=== PATIENT | male | born 1960 | race Caucasian/White ===

== ENCOUNTER 2016-12-27 21:07 | Emergency (ER) | payer OTHER ==
--- NOTE | 2016-12-27 21:13 | PDOC ---
History of Present Illness - General History Source: Patient Exam Limitations: No Limitations - History of Present Illness Initial Comments: 12/27/16 21:26 The patient is a 56year old male, with a significant past medical history of hypertension, CHF, hyperlipidemia, and hypothyroidism, who presents to the emergency department with complaints of a piece of his right hearing aid stuck in his ear canal. He reports that when he took his right hearing aid out a piece of it was missing and he believes it may still be stuck within his right ear. He denies any bodily pain or injury. Allergies: Iodinated contrast material Social history: Former smoker (quit in 2006) PCP: Dr. Fanny Barr <Angie Veliz - Last Filed: 12/27/16 21:26> <Santos Sweeney - Last Filed: 12/28/16 06:40> - General Chief Complaint: Foreign Body (FB) Stated Complaint: HEARING AID PART IN RIGHT EAR Time Seen by Provider: 12/27/16 21:12 Past History <Angie Veliz - Last Filed: 12/27/16 21:26> - Past Medical History Anemia: No Asthma: No (STATES HE WAS PUT ON SINGULAIR FOR A "COLD") Cancer: No Cardiac Disorders: Yes (HAD [place] 1993-TREATED MEDICALLY,NOT SURE WHEN HAD NUCLEAR STRESS LAST) CVA: No COPD: No CHF: Yes Dementia: No Diabetes: Yes (NIDDM) GI Disorders: No Disorders: No HTN: Yes Hypercholesterolemia: Yes Liver Disease: No Seizures: No Thyroid Disease: Yes (HYPOTHYROIDISM) - Surgical History Abdominal Surgery: No Appendectomy: No Cardiac Surgery: No Cholecystectomy: No Lung Surgery: No Neurologic Surgery: No Orthopedic Surgery: Yes (RIGHT AND LEFT KNEE REPLACEMENTS 1999 [id number], RIGHT ARM SURGERY 30 YRS AGO) - Psycho/Social/Smoking Cessation Hx Anxiety: No Suicidal Ideation: No Smoking Status: No Smoking History: Never smoked Years of Tobacco Use: 23 Have you smoked in the past 12 months: No Number of Cigarettes Smoked Daily: 0 If you are a former smoker, when did you quit?: 2006 Hx Alcohol Use: Yes (SOCIALLY) Drug/Substance Use Hx: No Substance Use Type: Alcohol Hx Substance Use Treatment: No <Santos Sweeney - Last Filed: 12/28/16 06:40> - Past Medical History Allergies/Adverse Reactions: Allergies Allergy/AdvReac Type Severity Reaction Status Date / Time Iodinated Contrast Media - Allergy Mild Swelling, Verified 01/27/16 01:06 Oral and Itching, [IV Dye, Iodine Containing Rash Contrast ] Home Medications: Ambulatory Orders Carvedilol 12.5 mg PO DAILY 06/08/12 Furosemide [Lasix -] 40 mg PO DAILY 06/08/12 Levothyroxine [Synthroid -] 200 mcg PO SUSA 06/08/12 Lisinopril [Prinivil] 10 mg PO DAILY 06/08/12 Aspirin [ASA -] 81 mg PO DAILY 06/21/12 Simvastatin [Zocor -] 20 mg PO HS 11/08/13 Levothyroxine Sodium [Levo-T] 175 mcg PO MOTUWETHFR 04/04/16 Oxycodone HCl/Acetaminophen [Percocet 5-325 mg Tablet] 1 - 2 tab PO Q6H Tizanidine HCl [Zanaflex (Nf) -] 2 mg PO TID PRN #15 tablet 04/18/16 Darifenacin Hydrobromide [Darifenacin ER] 7.5 mg PO DAILY 12/27/16 Montelukast Na [Singulair -] 10 mg PO HS 12/27/16 Omeprazole 20 mg PO DAILY 12/27/16 Review of Systems - Review of Systems Able to Perform ROS?: Yes Comments:: 12/27/16 21:26 GENERAL/CONSTITUTIONAL: No fever or chills. No weakness. HEAD, EYES, EARS, NOSE AND THROAT: +Believes foreign body in right ear No change in vision. No ear pain or discharge. No sore throat. <Angie Veliz - Last Filed: 12/27/16 21:26> *Physical Exam - Vital Signs Last Vital Signs Temp Pulse Resp BP Pulse Ox 98.2 F 82 18 154/78 98 12/27/16 21:08 12/27/16 21:08 12/27/16 21:08 12/27/16 21:08 12/27/16 21:08 - Physical Exam Comments: 12/27/16 21:27 GENERAL: Awake, alert, and fully oriented, in no acute distress HEAD: No signs of trauma ENT: Auricles normal inspection, hearing grossly normal, nares patent, oropharynx clear without exudates. Moist mucosa SKIN: Warm, Dry, normal turgor, no rashes or lesions noted. <Angie Veliz - Last Filed: 12/27/16 21:26> Medical Decision Making - Medical Decision Making 12/28/16 06:39 no fb identified <Santos Sweeney - Last Filed: 12/28/16 06:40> *DC/Admit/Observation/Transfer - Attestations Scribe Attestion: 12/27/16 21:27 Documentation prepared by JAS Salgado, acting as medical coder for Santos Sweeney MD. <Angie Veliz - Last Filed: 12/27/16 21:26> <Santos Sweeney - Last Filed: 12/28/16 06:40> Diagnosis at time of Disposition: Foreign body in ear - Discharge Dispostion Disposition: HOME Condition at time of disposition: Good - Referrals Referrals: Fanny Barr MD [Primary Care Provider] -
[2016-12-27 21:15] VITALS: BP 154/78; PULSE 82; TEMP 98.2; BMI 48.8
== END 2016-12-27 21:22 | disposition home or self-care (01) ==
LOC: SUPCPDRO 21:07 → FER 21:07
DX: T16.1XXA Foreign body in right ear, initial encounter (principal); X58.XXXA Exposure to other specified factors, initial encounter; Y93.89 Activity, other specified; Y92.9 Unspecified place or not applicable; E03.9 Hypothyroidism, unspecified; E11.9 Type 2 diabetes mellitus without complications; I50.9 Heart failure, unspecified; E78.5 Hyperlipidemia, unspecified; I25.2 Old myocardial infarction
CPT/HCPCS: 99281-25

== ENCOUNTER 2017-05-01 20:54 | Emergency (ER) | payer OTHER ==
[2017-05-01 20:59] VITALS: BP 153/86; PULSE 82; TEMP 98.3; BMI 53.8
--- NOTE | 2017-05-01 21:31 | PDOC ---
History of Present Illness - General History Source: Patient Exam Limitations: No Limitations - History of Present Illness Initial Comments: 05/01/17 21:55 The patient is a 56 year old male with a significant past medical history of GERD who presents to the ED with complaints of constipation for 2 days and abdominal pain for several hours. The patient reports multiple episodes of hard small sized stool. He reports one episode of blood in the stool yesterday secondary to straining in order to pass the bowel. Patient also reports a sudden onset of sharp generalized abdominal pain several hours ago. He also reports diaphoresis and feeling hot associated with present symptoms. Patient has an upper endoscopy scheduled in 2 days. Denies fever or chills. Denies chest pain or shortness of breath. Denies dysuria or change in urinary output. Denies any other symptoms. <Marianna Lomax - Last Filed: 05/01/17 21:55> <Kelsi Perez - Last Filed: 05/02/17 04:34> - General Chief Complaint: Pain, Acute Stated Complaint: ABD PAIN Time Seen by Provider: 05/01/17 21:30 Past History <Marianna Lomax - Last Filed: 05/01/17 21:55> - Past Medical History Anemia: No Asthma: No (STATES HE WAS PUT ON SINGULAIR FOR A "COLD") Cancer: No Cardiac Disorders: Yes (HAD [place] 1993-TREATED MEDICALLY,NOT SURE WHEN HAD NUCLEAR STRESS LAST) CVA: No COPD: No CHF: Yes Dementia: No Diabetes: Yes (NIDDM) GI Disorders: Yes (GERD) Disorders: No HTN: Yes Hypercholesterolemia: Yes Liver Disease: No Seizures: No Thyroid Disease: Yes (HYPOTHYROIDISM) - Surgical History Abdominal Surgery: No Appendectomy: No Cardiac Surgery: No Cholecystectomy: No Lung Surgery: No Neurologic Surgery: No Orthopedic Surgery: Yes (RIGHT AND LEFT KNEE REPLACEMENTS 1999 [id number], RIGHT ARM SURGERY 30 YRS AGO) - Suicide/Smoking/Psychosocial Hx Smoking Status: No Smoking History: Never smoked Years of Tobacco Use: 23 Have you smoked in the past 12 months: No Number of Cigarettes Smoked Daily: 0 If you are a former smoker, when did you quit?: 2006 Hx Alcohol Use: Yes (SOCIALLY) Drug/Substance Use Hx: No Substance Use Type: Alcohol Hx Substance Use Treatment: No <Kelsi Perez - Last Filed: 05/02/17 04:34> - Past Medical History Allergies/Adverse Reactions: Allergies Allergy/AdvReac Type Severity Reaction Status Date / Time Iodinated Contrast- Oral and Allergy Mild Swelling, Verified 01/27/16 01:06 IV Dye Itching, [IV Dye, Iodine Containing Rash Contrast ] Home Medications: Ambulatory Orders Carvedilol 12.5 mg PO BID 06/08/12 Furosemide [Lasix -] 40 mg PO DAILY 06/08/12 Levothyroxine [Synthroid -] 200 mcg PO SUSA 06/08/12 Lisinopril [Prinivil] 10 mg PO DAILY 06/08/12 Aspirin [ASA -] 81 mg PO DAILY 06/21/12 Simvastatin [Zocor -] 20 mg PO HS 11/08/13 Levothyroxine Sodium [Levo-T] 175 mcg PO MOTUWETHFR 04/04/16 Oxycodone HCl/Acetaminophen [Percocet 5-325 mg Tablet] 1 - 2 tab PO Q6H Tizanidine HCl [Zanaflex (Nf) -] 2 mg PO TID PRN #15 tablet 04/18/16 Darifenacin Hydrobromide [Darifenacin ER] 7.5 mg PO DAILY 12/27/16 Montelukast Na [Singulair -] 10 mg PO HS 12/27/16 Omeprazole 20 mg PO DAILY 12/27/16 Hyoscyamine Odt [Levsin Odt -] 0.125 mg PO TID PRN #10 tab.rapdis 05/01/17 Hyoscyamine Odt [Levsin Odt -] 0.125 mg PO TID PRN #10 tab.rapdis 05/01/17 Review of Systems - Review of Systems Able to Perform ROS?: Yes Comments:: 05/01/17 21:55 CONSTITUTIONAL: + diaphoresis No reported: Fever, Chills, Generalized Weakness, Malaise, Loss of Appetite HEENT: No reported: Rhinorrhea, Nasal Congestion, Throat Pain, Throat Swelling, Difficulty Swallowing, Mouth Swelling, Ear Pain, Eye Pain, Visual Changes CARDIOVASCULAR: No reported: Chest Pain, Syncope, Palpitations, Irregular Heart Rate, Lightheadedness, Peripheral Edema RESPIRATORY: No reported: Cough, Shortness of Breath, SOB with Exertion, Orthopnea, Wheezing , Stridor, Hemoptysis GASTROINTESTINAL: + abdominal pain, constipation,hematochezia No reported: , Abdominal Distension, Nausea, Vomiting, Diarrhea, Melena GENITOURINARY: No reported: Dysuria, Frequency, Urgency, Hesitancy, Flank Pain, Genital Pain MUSCULOSKELETAL: No reported: Myalgia, Arthralgia, Joint Swelling, Back pain, Neck Pain SKIN: No reported: Rash, Itching, Pallor HEMEATOLOGIC/IMMUNOLOGIC: No reported: Easy Bleeding, Easy Bruising, Lymphadenopathy, Frequent infections ENDOCRINE: No reported: Unexplained Weight Gain, Unexplained Weight Loss, Heat Intolerance , Cold Intolerance NEUROLOGIC: No reported: Headache, Focal Weakness, Paresthesias, Vertigo, Lightheadedness, Unsteady Gait, Seizure, Mental Status Changes, Incontinence PSYCHIATRIC: No reported: Anxiety, Depression All Other Systems: Reviewed and Negative <Marianna Lomax - Last Filed: 05/01/17 21:55> *Physical Exam - Vital Signs Last Vital Signs Temp Pulse Resp BP Pulse Ox 98.3 F 82 18 153/86 100 05/01/17 20:56 05/01/17 20:56 05/01/17 20:56 05/01/17 20:56 05/01/17 20:56 <Marianna Lomax - Last Filed: 05/01/17 21:55> - Vital Signs Last Vital Signs Temp Pulse Resp BP Pulse Ox 98.3 F 82 18 153/86 100 05/01/17 20:56 05/01/17 20:56 05/01/17 20:56 05/01/17 20:56 05/01/17 20:56 - Physical Exam Comments: GENERAL: Adult male, alert and oriented 3, in mild distress secondary to abdominal discomfort HEAD: Normal with no signs of trauma. EYES: PERRLA, EOMI, sclera anicteric, conjunctiva clear. ENT: Ears normal, nares patent, oropharynx clear without exudates. Dry mucous membranes. NECK: Normal range of motion, supple without lymphadenopathy, JVD, or masses. LUNGS: Breath sounds equal, clear to auscultation bilaterally. No wheezes, and no crackles. HEART:Regular rate and rhythm, normal S1 and S2 without murmur, rub or gallop. ABDOMEN:.normal bowel sounds; distended but soft; mild tenderness left upper quadrant; no guarding/rebound, no masses EXTREMITIES: Normal range of motion, no edema. No clubbing or cyanosis. No erythema, or tenderness. NEUROLOGICAL: Cranial nerves II through XII grossly intact. Normal speech. No focal neurological deficits. MUSCULOSKELETAL: Back non-tender to palpation, no CVA tenderness SKIN: Warm, Dry, normal turgor, no rashes or lesions noted. <Kelsi Perez - Last Filed: 05/02/17 04:34> ED Treatment Course - LABORATORY CBC & Chemistry Diagram: 05/01/17 21:35 05/01/17 21:35 <Marianna Lomax - Last Filed: 05/01/17 21:55> - LABORATORY CBC & Chemistry Diagram: 05/01/17 21:35 05/01/17 21:35 <Kelsi Perez - Last Filed: 05/02/17 04:34> Progress Note - Progress Note Progress Note: Documentation has been prepared under my direction and personally reviewed by me in its entirety. I attest that this documented accurately reflects all work, treatment, procedures and medical decision making performed by me. <Kelsi Perez - Last Filed: 05/02/17 04:34> Medical Decision Making - Medical Decision Making As noted above, this 56-year-old man with a history of GERD and chronic back pain, presents with a few hour history of abdominal pain. Patient has been having constipation during the last few days but has been passing hard stool for the last few hours. Notably, the patient is scheduled for both upper endoscopy and colonoscopy in 2 days (Wednesday, May 04). He currently is not yet taking any oral preparation for the colonoscopy. No history of diverticulitis/colitis Exam as noted: Because of patient's left upper quadrant tenderness, abdominal/ pelvic CT will be performed (noncontrast IV or oral) Laboratory evaluation is essentially normal except for mild prerenal azotemia with a BUN of 25 and a creatinine of 1.2. White blood cell count is normal. Abdominal/pelvic CT, preliminary interpretation by Imaging aviation technical systems specialist: Transverse colitis (infectious versus inflammatory). No evidence of diverticulitis/ appendicitis or other acute process. Patient was given Levsin 0.125 milligrams ODT. Patient states that he feels significantly better after Levsin. Patient will follow-up with his bag machine helper as scheduled May 04. Prescription for Levsin 0.125 mg up to 3 times a day as needed for cramping pain can be taken. He should return to the ER if he has worsening pain or experiences vomiting/fever <Kelsi Perez - Last Filed: 05/02/17 04:34> *DC/Admit/Observation/Transfer - Attestations Scribe Attestion: 05/01/17 21:55 Documentation prepared by Marianna oLmax, acting as biomedical equipment specialist for Kelsi Perez MD <Marianna Lomax - Last Filed: 05/01/17 21:55> <Kelsi Perez - Last Filed: 05/02/17 04:34> Diagnosis at time of Disposition: Colitis - Discharge Dispostion Disposition: HOME Condition at time of disposition: Stable - Prescriptions Prescriptions: Hyoscyamine Odt [Levsin Odt -] 0.125 mg PO TID PRN #10 tab.rapdis PRN Reason: Pain Hyoscyamine Odt [Levsin Odt -] 0.125 mg PO TID PRN #10 tab.rapdis PRN Reason: Moderate Pain - Referrals Referrals: Fanny Barr MD [Primary Care Provider] - - Patient Instructions Printed Discharge Instructions: DI for Colitis Additional Instructions: Levsin ODT 0.125 mg up to 3 times a day as needed for abdominal cramping You can proceed with prep medications for upper endoscopy/colonoscopy as previously advised Follow-up with your bag machine helper on Wednesday, May 04 as previously scheduled Return to ER if you have severe abdominal pain/vomiting/fever - Post Discharge Activity
[2017-05-01 21:54] LABS: URINE APPEARANCE Clear; URINE BILIRUBIN Negative (NEGATIVE); URINE BLOOD Negative (NEGATIVE); URINE COLOR YELLOW; URINE GLUCOSE (UA) Negative (NEGATIVE); URINE KETONE Negative (NEGATIVE); URINE LEUK ESTERASE Negative (NEGATIVE); URINE NITRITE Negative (NEGATIVE); URINE PROTEIN 1+ (NEGATIVE); URINE UROBILINOGEN 0.2 (0.2-1.0)
[2017-05-01 22:02] LABS: BASOPHIL 0.6 % (0-2.0); EOSINOPHIL 1.8 % (0-4.5); MCH 31.3 pg (25.7-33.7); MCHC 33.5 g/dl (32.0-35.9); MEAN CELL VOLUME 93.5 fl (80-96); MEAN PLT VOLUME 8.4 fl (7.5-11.1); NEUTROPHILS 69.6 % (42.8-82.8); PLATELET COUNT 197 K/MM3 (134-434); RDW 13.8 % (11.9-15.9); WHITE BLOOD COUNT 7.7 K/mm3 (4.0-10.8)
[2017-05-01 22:20] LABS: ALBUMIN 4.6 g/dl (3.5-5.0); ALK PHOS 55 U/L (32-92); ANION GAP 10 (8-16); BILIRUBIN,TOTAL 1.2 mg/dl (0.2-1.0); CALCIUM 9.8 mg/dl (8.4-10.2); CO2 25 mmol/L (22-28); CREATININE 1.2 mg/dl (0.6-1.3); GLUCOSE,RANDOM 130 mg/dl (74-106); SGOT/AST 30 U/L (10-42); SGPT/ALT 12 U/L (10-40); TOT PROT 7.7 g/dl (6.4-8.3); URINE BACTERIA FEW /hpf (NEGATIVE); URINE RBC 0-2 /hpf (0-3); URINE SPERM MANY
[2017-05-01 22:31] LABS: CPK 494 IU/L (39-308)
[2017-05-01 22:32] LABS: TROPONIN I (DFP) < 0.03 ng/ml (0.03-0.50)
[2017-05-01] MEDS ORDERED: HYOSCYAMINE SULFATE 0.125 MG *ODT PO ONE (22:59)
[2017-05-01] MEDS ORDERED: HYOSCYAMINE SULFATE 0.125 MG *ODT ONE (23:02)
== END 2017-05-01 23:47 | disposition home or self-care (01) ==
LOC: FER 20:54
DX: K52.9 Noninfective gastroenteritis and colitis, unspecified (principal); K21.9 Gastro-esophageal reflux disease without esophagitis; I25.2 Old myocardial infarction; I10 Essential (primary) hypertension; E11.9 Type 2 diabetes mellitus without complications; E78.00 Pure hypercholesterolemia, unspecified; Z96.653 Presence of artificial knee joint, bilateral; Z91.041 Radiographic dye allergy status
CPT/HCPCS: 36415; 74176-TC; 80053; 81003; 81015; 82550; 82553; 83690; 84484; 85025; 99283-25

== ENCOUNTER 2019-03-05 14:10 | Emergency (ER) | payer OTHER ==
[2019-03-05 14:20] VITALS: TEMP 98; BMI 46.0
[2019-03-05] MEDS ORDERED: MECLIZINE HCL 25 MG TABLET (FP) PO ONE (16:13)
[2019-03-05] MEDS ORDERED: SODIUM CHLORIDE 0.9% 1000 ML INFUS.BAG IV ONE (16:13)
[2019-03-05] MEDS ORDERED: MECLIZINE HCL 25 MG TABLET (FP) ONE (16:18)
[2019-03-05 16:55] LABS: BASO % 0.8 % (0-2.0); EOS % 1.4 % (0-4.5); HEMOGLOBIN 14.5 GM/dl (11.7-16.9); MCH 32.3 pg (25.7-33.7); MCHC 32.3 g/dl (32.0-35.9); MEAN CELL VOLUME 99.8 fl (80-96); MEAN PLT VOLUME 8.2 fl (7.5-11.1); MONO % 6.6 % (3.8-10.2); NEUT % 67.2 % (42.8-82.8); PLATELET COUNT 207 K/MM3 (134-434); RBC 4.51 M/mm3 (4.00-5.60); RDW 13.4 % (11.9-15.9); WHITE BLOOD COUNT 7.6 K/mm3 (4.0-10.8)
[2019-03-05 17:07] LABS: ALBUMIN 4.6 g/dl (3.4-5.0); BILIRUBIN,TOTAL 0.9 mg/dl (0.2-1); CALCIUM 9.8 mg/dl (8.5-10); CREATININE 1.1 mg/dl (0.55-1.3); MAGNESIUM 2.2 mg/dL (1.8-2.4); POTASSIUM 4.8 mmol/L (3.5-5.1); TOT PROT 7.5 g/dl (6.4-8.2)
--- NOTE | 2019-03-05 17:32 | PDOC ---
Documentation entered by Katherine Talley SCRIBE, acting as scribe for Kiana Casarez MD. Kiana Casarez MD: This documentation has been prepared by the jacklyneMayank Aiswarya, SCRIBE, under my direction and personally reviewed by me in its entirety. I confirm that the documentation accurately reflects all work, treatment, procedures, and medical decision making performed by me. History of Present Illness - General Chief Complaint: Cold Symptoms Stated Complaint: cold symptoms and dizzy - History of Present Illness Initial Comments: 03/05/19 16:00 The patient is a 58 year old male, with a significant PMH of CHF, [place] (1993), NIDDM (patient states he no longer has diabetes), GERD, HTN, HLD and hypothyroidism, who presents to the emergency department with intermittent lightheadedness that began a week and half ago. The patient states he endorses associated symptoms of fatigue. The lightheadedness is triggered when he stands to quickly. States at times, he feels like he is rocking on a boat for a few seconds. He denies room spinning dizziness. The patient denies chest pain, shortness of breath. Denies visual sxs, focal weakness/numbnes and headache. Denies fever, chills, abd pain, nausea, vomit, diarrhea and constipation. Denies cough, runny nose, sore throat. Denies dysuria, frequency, urgency and hematuria. No treatments tried. Allergies: iodinated contrast media Past surgical history: right and left knee replacements 1999 and 2009 right arm surgery 30 years ago. Social history: Former smoker (quit in 2006), drinks alcohol On arrival to ED (8 mins after registration), pt became very upset with RN because on her review of the EMR, pt had hx of DM. He raised his voice, shouting "I know my body and I know I dont have diabetes." Despite attempts by RN to calm pt down, he continued to raise his voice, now also insulting the RN and shouting expletives. I instructed pt to lower his voice and informed him that any verbal abuse towards staff in the emergency department will not be tolerated. Pt proceeded to loudly insult all ED staff. I again attempted to redirect pt, informed him that we would have to call security if he did not lower his voice. Pt continued to call the ED staff "olivia." Security was called , they attempted to talk pt down but pt continued to be verbally aggressive and insulting towards the staff. PD was called by . PD discussed with patient that the two options for him at this time were to cease his verbal abuse of the staff OR he could leave the emergency department. At this point, an MSE by cleared the pt from requiring an emergency level of care. After a few minutes, the patient calmed down, lowered his voice, and became cooperative with the ED staff. Past History - Past Medical History Allergies/Adverse Reactions: Allergies Allergy/AdvReac Type Severity Reaction Status Date / Time Iodinated Contrast Media Allergy Mild Swelling, Verified 03/05/19 14:12 [IV Dye, Iodine Containing Itching, Contrast ] Rash Home Medications: Ambulatory Orders Carvedilol 12.5 mg PO BID 06/08/12 Furosemide [Lasix -] 40 mg PO DAILY 06/08/12 Lisinopril [Prinivil] 10 mg PO DAILY 06/08/12 Aspirin [ASA -] 81 mg PO DAILY 06/21/12 Simvastatin [Zocor -] 20 mg PO HS 11/08/13 Montelukast Na [Singulair -] 10 mg PO HS 12/27/16 Omeprazole 20 mg PO DAILY 12/27/16 Darifenacin Hydrobromide [Darifenacin ER] 7.5 mg PO DAILY 03/05/19 Levothyroxine Sodium [Levoxyl] 175 mcg PO ASDIR 03/05/19 Levothyroxine Sodium [Levoxyl] 200 mcg PO ASDIR 03/05/19 Meclizine HCl [Antivert -] 25 mg PO TID PRN #15 tablet 03/05/19 Anemia: No Asthma: No (STATES HE WAS PUT ON SINGULAIR FOR A "COLD") Cancer: No Cardiac Disorders: Yes (HAD [place] 1993-TREATED MEDICALLY,NOT SURE WHEN HAD NUCLEAR STRESS LAST) CVA: No COPD: No CHF: Yes Dementia: No Diabetes: Yes (NIDDM) GI Disorders: Yes (GERD) Disorders: No HTN: Yes Hypercholesterolemia: Yes Liver Disease: No Seizures: No Thyroid Disease: Yes (HYPOTHYROIDISM) - Surgical History Abdominal Surgery: No Appendectomy: No Cardiac Surgery: No Cholecystectomy: No Lung Surgery: No Neurologic Surgery: No Orthopedic Surgery: Yes (RIGHT AND LEFT KNEE REPLACEMENTS 1999 [id number], RIGHT ARM SURGERY 30 YRS AGO) - Suicide/Smoking/Psychosocial Hx Smoking Status: No Smoking History: Never smoked Years of Tobacco Use: 23 Have you smoked in the past 12 months: No Number of Cigarettes Smoked Daily: 0 If you are a former smoker, when did you quit?: 2006 Hx Alcohol Use: Yes Drug/Substance Use Hx: No Substance Use Type: Alcohol Hx Substance Use Treatment: No Review of Systems - Review of Systems Able to Perform ROS?: Yes Comments:: 03/05/19 16:02 GENERAL/CONSTITUTIONAL: No fever or chills. HEAD, EYES, EARS, NOSE AND THROAT: No change in vision. No ear pain or discharge. No sore throat. GASTROINTESTINAL: No nausea, vomiting, diarrhea or constipation. CARDIOVASCULAR: No chest pain or shortness of breath. RESPIRATORY: No cough, wheezing, or hemoptysis. MUSCULOSKELETAL: No joint or muscle swelling or pain. No neck or back pain. SKIN: No rash NEUROLOGIC: +dizziness. No headache, vertigo, loss of consciousness, or change in strength/sensation. ENDOCRINE: No increased thirst. No abnormal weight change. HEMATOLOGIC/LYMPHATIC: No anemia, easy bleeding, or history of blood clots. ALLERGIC/IMMUNOLOGIC: No hives or skin allergy *Physical Exam - Vital Signs Last Vital Signs Temp Pulse Resp BP Pulse Ox 98 F 64 18 115/53 L 98 03/05/19 14:11 03/05/19 14:11 03/05/19 14:11 03/05/19 14:11 03/05/19 14:11 - Physical Exam Comments: 03/05/19 16:58 GENERAL: Awake, alert, and fully oriented, in no acute distress. Obese. HEAD: No signs of trauma EYES: PERRLA, EOMI, sclera anicteric, conjunctiva clear ENT: Auricles normal inspection, hearing grossly normal, nares patent, oropharynx clear without exudates. Moist mucosa NECK: Normal ROM, supple, no lymphadenopathy, JVD, or masses LUNGS: Breath sounds equal, clear to auscultation bilaterally. No wheezes, and no crackles HEART: Regular rate and rhythm, normal S1 and S2, no murmurs, rubs or gallops ABDOMEN: Soft, nontender, normoactive bowel sounds. No guarding, no rebound. No masses EXTREMITIES: Normal range of motion, no edema. No clubbing or cyanosis. No cords , erythema, or tenderness BACK: No midline spinal tenderness in cervical/thoracic/lumbar region NEUROLOGICAL: Normal speech, cranial nerves intact, negative pronator drift, 5/ 5 strength in all 4 extremities, normal sensation to light touch in all 4 extremities, normal cerebellar exam, normal gait, normal tone SKIN: Warm, Dry, normal turgor, no rashes or lesions noted. Heart Score/ECG Review #1 03/05/19 17:30 EKG read and int by me: NSR, rate 64, normal axis. No ITZEL. TW flattening inferiorly. No sig changes compared to EKG from 2012 ED Treatment Course - LABORATORY CBC & Chemistry Diagram: 03/05/19 16:35 03/05/19 16:35 - ADDITIONAL ORDERS Additional order review: 03/05/19 16:35 RBC 4.51 MCV 99.8 H MCHC 32.3 RDW 13.4 MPV 8.2 Neutrophils % 67.2 Lymphocytes % 24.0 Monocytes % 6.6 Eosinophils % 1.4 Basophils % 0.8 - RADIOLOGY Radiology Studies Ordered: Category Date Time Status CHEST X-RAY PORTABLE* [RAD] Stat Radiology 03/05/19 16:12 Taken - Medications Given in the ED: ED Medications Discontinued Medications Generic Name Dose Route Start Last Admin Trade Name Freq PRN Reason Stop Dose Admin Meclizine HCl 25 mg 03/05/19 16:13 03/05/19 16:42 Antivert - PO 03/05/19 16:14 25 mg ONCE ONE Administration Sodium Chloride 250 ml 03/05/19 16:13 03/05/19 16:43 Normal Saline - IV 03/05/19 16:14 250 ml ONCE ONE Administration Medical Decision Making - Medical Decision Making 03/05/19 58yo M presents to the ED with intermittent lightheadedness and fatigue for 1 week. Triage note states cold symptoms, but pt denies all cold sxs (see HPI) Vitals and exam unremarkable. He is neurologically intact. Plan to check labs for metabolic disarray, dehydration, anemia. Will also check EKG and trop for ischemia Will treat with small bolus of fluids (given CHF hx) and meclizine Labs within normal limits CXR unchanged Sxs resolved with small fluid bolus and meclizine Pt feels a lot better, he is clinically stbale for DC home I discussed the physical exam findings, ancillary test results and final diagnoses with the patient. I answered all of the patient's questions. The patient was satisfied with the care received and felt comfortable with the discharge plan and treatment plan. The patient will call their primary care physician within 24 hours to arrange follow-up and will return to the Emergency Department with any new, persistent or worsening symptoms. *DC/Admit/Observation/Transfer Diagnosis at time of Disposition: Light-headed feeling, Fatigue, Dizziness - Discharge Dispostion Disposition: HOME Condition at time of disposition: Improved Decision to Admit order: No - Prescriptions Prescriptions: Meclizine HCl [Antivert -] 25 mg PO TID PRN #15 tablet PRN Reason: vertigo - Referrals - Patient Instructions Printed Discharge Instructions: DI for Fatigue Additional Instructions: Follow up with your primary care doctor in 2-3 days Take meclizine as needed for dizziness sensation. Do not drive or operate machinery when taking this medication as it can make you sleepy. Return to the emergency department if you have any new, worsening, or concerning symptoms. - Post Discharge Activity - Attestations Physician Attestion: 03/05/19 18:08 I, Dr. Kiana Casarez MD, attest that this document has been prepared under my direction and personally reviewed by me in its entirety. I further attest, that it accurately reflects all work, treatment, procedures and medical decision -making performed by me.
[2019-03-05 18:29] VITALS: BP 118/58; PULSE 78
--- NOTE | 2019-03-06 10:32 | EKG ---
Test Reason : Blood Pressure : / mmHG Vent. Rate : 064 BPM Atrial Rate : 064 BPM P-R Int : 152 ms QRS Dur : 104 ms QT Int : 404 ms P-R-T Axes : 027 -06 007 degrees QTc Int : 416 ms POOR DATA QUALITY, INTERPRETATION MAY BE ADVERSELY AFFECTED NORMAL SINUS RHYTHM MINIMAL VOLTAGE CRITERIA FOR LVH, MAY BE NORMAL VARIANT POSSIBLE ANTEROLATERAL INFARCT , AGE UNDETERMINED ABNORMAL ECG WHEN COMPARED WITH ECG OF 03-AUG-2009 11:03, INCOMPLETE LEFT BUNDLE BRANCH BLOCK IS NO LONGER PRESENT Confirmed by FAROOQ BERGMAN, KARENA ([id number]) on 03/06/2019 10:32:48 AM Referred By: Confirmed By:KARENA TRIVEDI MD
== END 2019-03-05 18:30 | disposition home or self-care (01) ==
LOC: FER 14:10
PROC: 3E0337Z Introduction of Electrolytic and Water Balance Substance into Peripheral Vein, Percutaneous Approach (ICD-10-PCS; principal; 2019-03-05)
DX: R42 Dizziness and giddiness (principal); R53.83 Other fatigue; Z87.891 Personal history of nicotine dependence; E78.00 Pure hypercholesterolemia, unspecified; E07.9 Disorder of thyroid, unspecified; I10 Essential (primary) hypertension; K21.9 Gastro-esophageal reflux disease without esophagitis; I50.9 Heart failure, unspecified; I25.2 Old myocardial infarction
CPT/HCPCS: 36415; 71045-TC-FY; 80053; 83735; 84484; 85025; 93005; 99283-25; J7030

== ENCOUNTER 2019-12-09 13:25 | Emergency (ER) | payer OTHER ==
[2019-12-09 13:31] VITALS: BP 139/79; PULSE 80; TEMP 98.4; BMI 49.3
[2019-12-09] MEDS ORDERED: DIPHTH,PERTUSS(ACELL),TET VAC 0.5 ML VIAL IM ONE (14:00)
--- NOTE | 2019-12-09 14:00 | PDOC ---
History of Present Illness - General Chief Complaint: Pain, Acute Stated Complaint: LEFT FOOT PAIN/NUMBNESS History Source: Patient Exam Limitations: No Limitations - History of Present Illness Initial Comments: 12/09/19 13:58 51-year-old male history of hypertension CHF obesity vascular insufficiency here today complaining of left foot pain and swelling for 1 week. Patient states that he may have stepped on something while barefoot on his dog denies feeling anything at that time but has had sensitivity and pain at the bottom of his foot is now spread up his leg he is denies any fevers or chills but feels the left foot is slightly more swollen than the right states he is not diabetic has had bilateral knee surgeries in the past denies any worsening shortness of breath from his baseline or any new chest pain last tetanus is unknown Past History - Medical History Allergies/Adverse Reactions: Allergies Allergy/AdvReac Type Severity Reaction Status Date / Time Iodinated Contrast Media Allergy Mild Swelling, Verified 12/09/19 13:26 [IV Dye, Iodine Containing Itching, Contrast ] Rash Home Medications: Ambulatory Orders Carvedilol 12.5 mg PO BID 06/08/12 Furosemide [Lasix -] 40 mg PO DAILY 06/08/12 Lisinopril [Prinivil] 10 mg PO DAILY 06/08/12 Aspirin [ASA -] 81 mg PO DAILY 06/21/12 Simvastatin [Zocor -] 20 mg PO HS 11/08/13 Montelukast Na [Singulair -] 10 mg PO HS 12/27/16 Omeprazole 20 mg PO DAILY 12/27/16 Darifenacin Hydrobromide [Darifenacin ER] 7.5 mg PO DAILY 03/05/19 Levothyroxine Sodium [Levoxyl] 175 mcg PO ASDIR 03/05/19 Levothyroxine Sodium [Levoxyl] 200 mcg PO ASDIR 03/05/19 Meclizine HCl [Antivert -] 25 mg PO TID PRN #15 tablet 03/05/19 Sulfamethoxazole/Trimethoprim [Bactrim Ds -] 1 tab PO BID #14 tablet 12/09/19 Anemia: No Asthma: No (STATES HE WAS PUT ON SINGULAIR FOR A "COLD") Cancer: No Cardiac Disorders: Yes (HAD MS 1993-TREATED MEDICALLY,NOT SURE WHEN HAD NUCLEAR STRESS LAST) CVA: No COPD: No CHF: Yes Dementia: No Diabetes: Yes (NIDDM) GI Disorders: Yes (GERD) Disorders: No HTN: Yes Hypercholesterolemia: Yes Liver Disease: No Seizures: No Thyroid Disease: Yes (HYPOTHYROIDISM) - Surgical History Abdominal Surgery: No Appendectomy: No Cardiac Surgery: No Cholecystectomy: No Lung Surgery: No Neurologic Surgery: No Orthopedic Surgery: Yes (RIGHT AND LEFT KNEE REPLACEMENTS 1999 [id number], RIGHT ARM SURGERY 30 YRS AGO) - Psycho-Social/Smoking History Smoking Status: No Smoking History: Unknown if ever smoked Years of Tobacco Use: 23 Have you smoked in the past 12 months: No Number of Cigarettes Smoked Daily: 0 If you are a former smoker, when did you quit?: 2006 - Substance Abuse Hx (Audit-C & DAST Scrn) How often the patient has a drink containing alcohol: Never Score: In Men: 4 or > Positive; In Women: 3 or > Positive: 0 Screen Result (Pos requires Nsg. Audit-10AR): Negative In the last yr the pt used illegal drug/Rx for NonMed reason: No Score: Yes response is considered Positive: 0 Screen Result (Positive result requires Nsg. DAST-10): Negative Review of Systems - Review of Systems Constitutional: No: Chills, Fever HEENTM: No: Eye Pain Respiratory: No: Cough, Orthopnea, Shortness of Breath Cardiac (ROS): Yes: Edema (chronic). No: Chest Pain ABD/GI: No: Nausea, Vomiting Musculoskeletal: Yes: Other (foot pain) Integumentary: Yes: Erythema, Other (foot swelling) Neurological: No: Headache, Numbness All Other Systems: Reviewed and Negative *Physical Exam - Vital Signs Last Vital Signs Temp Pulse Resp BP Pulse Ox 98.4 F 80 20 139/79 96 12/09/19 13:26 12/09/19 13:26 12/09/19 13:26 12/09/19 13:26 12/09/19 13:26 - Physical Exam 12/09/19 13:59 Awake alert no acute distress lungs are clear bilaterally heart is regular without any murmurs rubs or gallops abdomen is soft nontender obese extremities are noted for bilateral nonpitting edema the left foot is noted for a very small black dot approximately half a millimeter at the bottom or plantar surface of the left foot around the arch towards the heel there is a small 1 mm area surrounding what looks like purulence no noted erythema or warmth patient has 2+ DP PT pulses no leg erythema neurologically patient is awake alert and oriented x3 ED Treatment Course - RADIOLOGY Radiology Studies Ordered: Category Date Time Status FOOT-LEFT [RAD] Stat Radiology 12/09/19 13:57 Ordered Medical Decision Making - Medical Decision Making 12/09/19 14:00 59-year-old male history of hypertension CHF obesity bilateral knee surgery here with a possible foreign body or puncture wound to his left foot. Plan x-ray rule out foreign body may require small I&D of the small pustular area. Daily soaks and likely antibiotics for 1 week tetanus will be brought up-to-date today 12/09/19 15:55 On the x-ray there appears to be a small sliver-like 1 mm foreign body in the surface of the plantar foot. In addition it is noted that there is a calcification in the plantar fascial plane. Recommended the patient follow-up with podiatry a small incision was made with some pustular drainage where the area of the foreign body is to open the area to express the foreign body. Was irrigated bacitracin was applied with a dressing patient will be started on Bactrim discharged home told to soak his foot twice daily as well as take anti biotics twice daily for 7 days Discharge - Discharge Information Problems reviewed: Yes Clinical Impression/Diagnosis: Puncture wound of plantar aspect of foot, Foreign body in foot Condition: Improved Disposition: HOME - Admission No - Additional Discharge Information Prescriptions: Sulfamethoxazole/Trimethoprim [Bactrim Ds -] 1 tab PO BID #14 tablet - Follow up/Referral Referrals: Pb Bailey DPM [Staff Physician] - - Patient Discharge Instructions Patient Printed Discharge Instructions: DI for Puncture Wound Additional Instructions: You should take Bactrim double strength tablet 1 tablet twice daily for 1 week. You also need to soak your foot in warm soapy water twice daily for 20 minutes each time. Return for worsening redness swelling or pain to your foot is important you follow-up with the manager government next week please call Dr. purcell to schedule an appointment. Return for any problems or concerns for your pain you can take Tylenol 500 mg every 6 hours as needed for pain - Post Discharge Activity
[2019-12-09] MEDS ORDERED: DIPHTH,PERTUSS(ACELL),TET 0.5 ML DISP.SYRIN IM ONE (14:29)
== END 2019-12-09 15:58 | disposition home or self-care (01) ==
LOC: FER 13:25
PROC: 3E0234Z Introduction of Serum, Toxoid and Vaccine into Muscle, Percutaneous Approach (ICD-10-PCS; principal; 2019-12-09)
DX: S91.342A Puncture wound with foreign body, left foot, initial encounter (principal); Y99.8 Other external cause status
CPT/HCPCS: 73630-TC-LT; 90471; 99283-25

== ENCOUNTER 2020-01-15 11:56 | Emergency (ER) | payer OTHER ==
--- NOTE | 2020-01-15 12:02 | PDOC ---
History of Present Illness - General Chief Complaint: Pain Stated Complaint: ARTHRITIC HAND PAIN - History of Present Illness Initial Comments: The pt is a 59M w/ a history of HTN, HF, HLD, RA, GERD, (likely COPD) who presents for evaluation of b/l hand pain for 3 months and worsening b/l hand swelling for approximately 3 weeks. The pain is constant, non-radiating, achy/sharp, worse with movement/touch, and is mildly alleviated by NSAIDs. The pt reports he was recently diagnosed with RA and has been started on therapy. He reports the swelling in his hands has worsened over the last three weeks. He denies changes in his diuretic or changes in his diet (salt content). He denies fevers/chills, chest pain, worsening dyspnea, cough, N/V, dysuria, h ematuria, diarrhea, or blood in his stool. Denies changes in sensation. Denies wound/injury to hands 01/15/20 12:24 Past History - Medical History Allergies/Adverse Reactions: Allergies Allergy/AdvReac Type Severity Reaction Status Date / Time Iodinated Contrast Media Allergy Intermediate Rash Verified 01/15/20 12:21 Home Medications: Ambulatory Orders Aspirin 81 mg PO DAILY 01/15/20 Carvedilol [Coreg -] 12.5 mg PO BID 01/15/20 Darifenacin Hydrobromide [Darifenacin ER] 1 tab PO DAILY 01/15/20 Furosemide [Lasix] 40 mg PO BID 01/15/20 Hydroxychloroquine So4 [Plaquenil -] 200 mg PO BID 01/15/20 Levothyroxine Sodium [Levoxyl] 175 mcg PO ASDIR 01/15/20 Levothyroxine Sodium [Levoxyl] 200 mcg PO ASDIR 01/15/20 Lisinopril 10 mg PO DAILY 01/15/20 Methylprednisolone [Medrol -] 2 mg PO DAILY 01/15/20 Montelukast Na [Singulair -] 10 mg PO HS 01/15/20 Omeprazole 20 mg PO DAILY 01/15/20 Simvastatin 20 mg PO DAILY 01/15/20 Sulfasalazine [Azulfidine] 500 mg PO DAILY 01/15/20 Review of Systems - Review of Systems Able to Perform ROS?: Yes Comments:: GENERAL/CONSTITUTIONAL: No fever or chills. No weakness HEAD, EYES, EARS, NOSE AND THROAT: No change in vision. No change in hearing. No sore throat CARDIOVASCULAR: No chest pain RESPIRATORY: Denies cough, hemoptysis GASTROINTESTINAL: No nausea, vomiting, diarrhea or constipation GENITOURINARY: No dysuria, frequency, or change in urination MUSCULOSKELETAL: per HPI SKIN: No rash NEUROLOGIC: No headache, vertigo, loss of consciousness ENDOCRINE: No increased thirst. No abnormal weight change HEMATOLOGIC/LYMPHATIC: No anemia, easy bleeding, or history of blood clots ALLERGIC/IMMUNOLOGIC: No hives or skin allergy 01/15/20 12:01 Is the patient limited French proficient: No *Physical Exam - Vital Signs Initial Vital Signs Temp Pulse Resp BP Pulse Ox 98.1 F 80 16 116/68 96 01/15/20 11:59 01/15/20 11:59 01/15/20 11:59 01/15/20 11:59 01/15/20 11:59 01/15/20 13:23 - Physical Exam GENERAL: Awake, alert, and oriented to person/place/time, in no acute distress HEAD: No signs of trauma, normocephalic, atraumatic EYES: PERRLA, EOMI, sclera anicteric, conjunctiva clear ENT: Hearing grossly normal, nares patent, oropharynx clear without exudates. Moist mucosa LUNGS: No distress, speaks in full sentences, clear to auscultation bilaterally; dyspnic with ambulation HEART: Regular rate and rhythm, normal S1 and S2, no murmurs appreciated, peripheral pulses normal and equal bilaterally ABDOMEN: Soft, nontender, normoactive bowel sounds. No guarding, no rebound EXTREMITIES: non-pitting edema noted to b/l hands, sensation intact throughout, no erythema or wounds noted NEUROLOGICAL: Cranial nerves II through XII grossly intact. Normal speech, normal gait, no focal sensorimotor deficits _ SKIN: Warm, Dry 01/15/20 12:02 ED Treatment Course - LABORATORY CBC & Chemistry Diagram: 01/15/20 13:10 01/15/20 13:10 Medical Decision Making - Medical Decision Making The pt is a 59M w/ a history of HTN, HF, HLD, RA, GERD, (likely COPD) who presents for evaluation of b/l hand pain for 3 months and worsening b/l hand swelling for approximately 3 weeks. Hand swelling likely 2/2 worsening heart failure vs venous insufficiency, consider renal failure, pain likely combination of RA and hand swelling ED Course Pt's PMD contacted, HF and RA managed by subspecialist. No recent change to meds CMP, CBC, ECG, CXR to evaluate for pulm edema/effusion, renal function, evidence of heart strain Tylenol and Percocet for pain CXR w/o PNA, effusion, PNX, mild vascular congestion w/o overload; possible lung nodularity noted, results and need for f/u discussed with pt 01/15/20 13:32 No leukocytosis No anemia Lytes overall unremarkable No ADIEL LFTs overall unremarkable ECG w/ NSR; HR 75; QTc 433; no axis deviation; no acute ischemic changes Pt reports pain improved Plan for D/C w/ PCP/Rheum f/u Pt counseled to continue taking medications, hand elevation, and increasing physical activity Discharge instructions and return precautions given Patient in agreement and verbalized understanding Dispo: Home 01/15/20 14:15 Discharge - Discharge Information Problems reviewed: Yes Clinical Impression/Diagnosis: Hand pain Qualifiers: Laterality: bilateral Qualified Code(s): M79.641 - Pain in right hand Condition: Stable Disposition: HOME - Admission No - Follow up/Referral Referrals: Fanny Barr MD [Primary Care Provider] - - Patient Discharge Instructions Patient Printed Discharge Instructions: DI for Rheumatoid Arthritis, DI for Prescription Opioid Use Additional Instructions: You were seen in the Emergency Department for evaluation of hand pain. Your pain is likely a combination of your rheumatoid arthritis plus the swelling. Review the handouts provided at discharge. Follow up with your Filling Machine Set Up Mechanic and Practice Representative. Continue to take your medications as prescribed. You can also keep your hands elevated to help decrease the swelling. For pain you may take Tylenol 650mg every 6 hours or Ibuprofen 600mg every 6-8 hours as needed. Be sure not to exceed 4 grams of Tylenol in a day. Also note that taking Ibuprofen (NSAIDs) consistently can cause stomach pain/ulcers. Return to the Emergency Department if you develop fevers, chest pain, trouble breathing, changes in sensation, worsening symptoms, or any new/concerning symptoms. - Post Discharge Activity Work/Back to School Note: Back to Work
--- NOTE | 2020-01-15 12:06 | PDOC ---
Attending Attestation - Resident Resident Name: John Montalvo - ED Attending Attestation I have performed the following: I have examined & evaluated the patient, The case was reviewed & discussed with the resident, I agree w/resident's findings & plan, Exceptions are as noted - HPI HPI: 01/15/20 14:41 59y M hx of htn, hld, ra, gerd, presents for evaluation of b/l hand swelling/pain x 3 months - pt states he has been folowing up with rheumoatology who dx him with RA and started him on steroids as well as other meds. He has had persistent hand swelling/pain, pain feels like a tightness especially when he makes a fist making it difficult for him to do things. he deneis any associated efver.chilz, warmth, redness, cp, sob, sandoval, orthopnea. Pt notes some increased leg swelling over the past few months, but has not been worse than usual. he has been on some dmards and methylprednsone for the past 1-2 weeks without signfiicant improvement. - Physicial Exam PE: 01/15/20 14:57 GENERAL: The patient is awake, alert, and fully oriented, Nontoxic - in no acute distress, obese HEAD: Normocephalic, atraumatic. EYES: extraocular movements intact, sclera anicteric, conjunctiva clear. ENT: Normal voice, Moist mucous membranes. NECK: Normal range of motion, supple LUNGS: Breath sounds equal, clear to auscultation bilaterally. No wheezes, no rhonchi, no rales. HEART: Regular rate and rhythm, normal S1 and S2 without murmur, rub or gallop. ABDOMEN: Soft, nontender, No guarding, no rebound. No CVA tenderness EXTREMITIES: Normal range of motion, +1 pitting edema on b/l LE without calf ten derness, +2 pitting edema on UE (distal forearm/hands) - no joint pain/rom limitations, no erythema/nduration/fluctuance. NEUROLOGICAL: No facial assymetry, Normal speech, moving all 4 ext spontaneously and symmetrically PSYCH: Normal mood, normal affect. SKIN: Warm, Dry, normal turgor, - Medical Decision Making 01/15/20 14:58 ddx - swelling secondary to RA, consider renal/liver/heart failure as cause of his swelling, labs and cxr reveiwed pt given percocet wth some improvement will recommend elevation, decreased salt intake and to continue taking his rx's return precautions were discussed Heart Score/ECG Review - ECG Impressions Comment:: 01/15/20 14:59 Twelve-lead EKG was performed and reviewed by me. There is normal sinus rhythm with a normal rate. rate of 75 incompelte LBBB Discharge - Discharge Information Problems reviewed: Yes Clinical Impression/Diagnosis: Hand pain Qualifiers: Laterality: bilateral Qualified Code(s): M79.641 - Pain in right hand Condition: Stable Disposition: HOME - Additional Discharge Information Prescriptions: Oxycodone HCl/Acetaminophen [Percocet 5-325 mg Tablet -] 1 combo PO TID PRN #4 tablet MDD 3 PRN Reason: Pain - Follow up/Referral Referrals: Fanny Barr MD [Primary Care Provider] - - Patient Discharge Instructions Patient Printed Discharge Instructions: DI for Rheumatoid Arthritis, DI for Prescription Opioid Use Additional Instructions: You were seen in the Emergency Department for evaluation of hand pain. Your pain is likely a combination of your rheumatoid arthritis plus the swelling. Review the handouts provided at discharge. Follow up with your Slot Floorperson and Commercial Lender. Continue to take your medications as prescribed. You can also keep your hands elevated to help decrease the swelling. For pain you may take Tylenol 650mg every 6 hours or Ibuprofen 600mg every 6-8 hours as needed. Be sure not to exceed 4 grams of Tylenol in a day. Also note that taking Ibuprofen (NSAIDs) consistently can cause stomach pain/ulcers. Return to the Emergency Department if you develop fevers, chest pain, trouble breathing, changes in sensation, worsening symptoms, or any new/concerning s ymptoms. - Post Discharge Activity Work/Back to School Note: Back to Work
[2020-01-15 12:19] VITALS: BP 116/68; PULSE 80; TEMP 98.1; BMI 54.8
[2020-01-15] MEDS ORDERED: ACETAMINOPHEN 325 MG TABLET (FP) PO ONE (12:28)
[2020-01-15] MEDS ORDERED: ACETAMINOPHEN 325 MG TABLET (FP) ONE (12:30)
[2020-01-15 13:34] LABS: BASO % 0.5 % (0-2.0); EOS % 1.9 % (0-4.5); HEMATOCRIT 39.4 % (35.4-49); HEMOGLOBIN 12.6 GM/dl (11.7-16.9); MCH 32.3 pg (25.7-33.7); MEAN CELL VOLUME 100.9 fl (80-96); MEAN PLT VOLUME 7.2 fl (7.5-11.1); MONO % 5.7 % (3.8-10.2); NEUT % 78.9 % (42.8-82.8); PLATELET COUNT 213 K/MM3 (134-434); RDW 13.4 % (11.9-15.9); WHITE BLOOD COUNT 7.9 K/mm3 (4.0-10.8)
[2020-01-15 13:40] LABS: ALBUMIN 3.8 g/dl (3.4-5.0); BILIRUBIN,TOTAL 0.6 mg/dl (0.2-1); CALCIUM 9.1 mg/dl (8.5-10); CREATININE 0.9 mg/dl (0.55-1.3); POTASSIUM 4.2 mmol/L (3.5-5.1); TOT PROT 6.7 g/dl (6.4-8.2)
--- NOTE | 2020-01-16 10:46 | EKG ---
Test Reason : Blood Pressure : / mmHG Vent. Rate : 075 BPM Atrial Rate : 075 BPM P-R Int : 166 ms QRS Dur : 108 ms QT Int : 388 ms P-R-T Axes : 017 002 020 degrees QTc Int : 433 ms POOR DATA QUALITY, INTERPRETATION MAY BE ADVERSELY AFFECTED NORMAL SINUS RHYTHM INCOMPLETE LEFT BUNDLE BRANCH BLOCK BORDERLINE ECG NO PREVIOUS ECGS AVAILABLE Confirmed by Jarrett Dee ([id number]) on 01/16/2020 10:46:14 AM Referred By: NITESH CADENA Confirmed By:Jarrett Dee
== END 2020-01-15 14:26 | disposition home or self-care (01) ==
LOC: FER 11:56 → MERGE 11:56 → FER 14:26
DX: M79.641 Pain in right hand (principal)
CPT/HCPCS: 36415; 71045-TC-FY; 80053; 85025; 93005; 99285-25

== ENCOUNTER 2021-05-05 08:54 | Emergency (ER) | payer OTHER ==
[2021-05-05] MEDS ORDERED: LIDOCAINE HCL 2% JELLY (5 ML/TUBE) ONE (09:13)
[2021-05-05 09:18] VITALS: BP 123/79; PULSE 83; TEMP 99.1; BMI 53.1
== END 2021-05-05 09:25 | disposition home or self-care (01) ==
LOC: FER 08:54
DX: L29.0 Pruritus ani (principal)
CPT/HCPCS: 99283-25

== ENCOUNTER 2022-01-13 07:35 | Emergency (ER) | payer OTHER ==
[2022-01-13 07:47] VITALS: BMI 51.7
[2022-01-13] MEDS ORDERED: SODIUM CHLORIDE 0.9% 1000 ML INFUS.BAG IV ONE (07:57)
[2022-01-13] MEDS ORDERED: ACETAMINOPHEN 1000 MG/100 ML BAG IVPB ONE (07:57)
[2022-01-13] MEDS ORDERED: ACETAMINOPHEN INJECTION 100 ML IVPB ONE (07:58)
[2022-01-13 09:15] LABS: HEMATOCRIT 38.6 % (35.4-49); MCHC 33.7 g/dl (32.0-35.9); MEAN CELL VOLUME 94.9 fl (80-96); MEAN PLT VOLUME 7.4 fl (7.5-11.1); PLATELET COUNT 150.3 10^3/uL (134-434); RBC 4.07 10^6/uL (4.00-5.60); WHITE BLOOD COUNT 11.1 10^3/uL (4.0-10.8)
[2022-01-13 09:21] LABS: ALBUMIN 3.7 g/dl (3.4-5.0); CALCIUM 8.7 mg/dl (8.5-10); CREATININE 1.2 mg/dl (0.55-1.3); TOT PROT 6.6 g/dl (6.4-8.2)
[2022-01-13 09:37] LABS: PLATELET ESTIMATE ADEQUATE
[2022-01-13 09:44] LABS: EPITHELIAL CELLS RARE /hpf
[2022-01-13 10:17] LABS: VENOUS PCO2 48.9 mmHg (38-52); VENOUS PH 7.366 (7.310-7.410)
[2022-01-13] MEDS ORDERED: CEFTRIAXONE 1 GM in DEXTROSE 5%-WATER - 100 ML IVPB ONE (10:33)
[2022-01-13] MEDS ORDERED: LISINOPRIL 10 MG TABLET PO ONE (10:34)
[2022-01-13] MEDS ORDERED: LEVOTHYROXINE NA 150 MCG TABLET PO ONE (10:34)
[2022-01-13] MEDS ORDERED: CARVEDILOL 12.5 MG TABLET (FP) PO ONE (10:34)
[2022-01-13] MEDS ORDERED: FUROSEMIDE 40 MG TABLET (FP) PO ONE (10:34)
[2022-01-13] MEDS ORDERED: ASPIRIN COATED 81 MG TABLET.EC PO ONE (10:34)
[2022-01-13 10:35] LABS: LACTIC ACID 2.6 mmol/L (0.4-2.0)
[2022-01-13] MEDS ORDERED: ASPIRIN COATED 81 MG TABLET.EC ONE (10:48)
[2022-01-13] MEDS ORDERED: cefTRIAXone SODIUM 1 GM VIAL ONE (10:49)
[2022-01-13] MEDS ORDERED: FUROSEMIDE 40 MG TABLET (FP) ONE (10:49)
[2022-01-13] MEDS ORDERED: LISINOPRIL 10 MG TABLET ONE (10:49)
[2022-01-13 10:58] LABS: N-TERMINAL BNP 28.3 pg/ml (5-125)
[2022-01-13 12:10] VITALS: BP 123/62; PULSE 94; RESP 20; TEMP 99.9
[2022-01-13 13:22] LABS: LACTIC ACID 2.6 mmol/L (0.4-2.0)
== END 2022-01-13 12:49 | disposition home or self-care (01) ==
LOC: FER 07:35
PROC: 3E0333Z Introduction of Anti-inflammatory into Peripheral Vein, Percutaneous Approach (ICD-10-PCS; principal; 2022-01-13)
PROC: 3E03329 Introduction of Other Anti-infective into Peripheral Vein, Percutaneous Approach (ICD-10-PCS; 2022-01-13)
DX: R31.9 Hematuria, unspecified (principal); R50.9 Fever, unspecified
CPT/HCPCS: 0241U-QW; 36415; 71045-TC-FY; 71250-TC; 74176-TC; 80053; 81003; 81015; 82803; 83605; 83880; 84484; 85025; 87040; 87086; 87186; 93005; 96374; 96375; 99285-25

== ENCOUNTER 2022-04-02 15:54 | Emergency (ER) | payer OTHER ==
[2022-04-02] MEDS ORDERED: KETOROLAC TROMETHAMINE 30 MG/1 ML VIAL IM ONE (16:02)
[2022-04-02] MEDS ORDERED: LIDOCAINE 5% TOPICAL PATCH TP ONE (16:02)
[2022-04-02] MEDS ORDERED: METHOCARBAMOL 500 MG TABLET PO ONE (16:05)
[2022-04-02 16:13] VITALS: BP 143/77; PULSE 89; RESP 18; TEMP 97.8; BMI 54.8
[2022-04-02] MEDS ORDERED: METHOCARBAMOL 500 MG TABLET ONE (16:14)
[2022-04-02] MEDS ORDERED: KETOROLAC TROMETHAMINE 30 MG/1 ML VIAL ONE (16:14)
[2022-04-02] MEDS ORDERED: LIDOCAINE 5% TOPICAL PATCH ONE (16:14)
== END 2022-04-02 17:00 | disposition home or self-care (01) ==
LOC: FER 15:54
PROC: 3E023GC Introduction of Other Therapeutic Substance into Muscle, Percutaneous Approach (ICD-10-PCS; principal; 2022-04-02)
DX: M54.50 Low back pain, unspecified (principal)
CPT/HCPCS: 99284-25

== ENCOUNTER 2022-04-24 17:01 | Emergency (ER) | payer OTHER ==
[2022-04-24] MEDS ORDERED: LIDOCAINE 5% TOPICAL PATCH TP ONE (17:11)
[2022-04-24] MEDS ORDERED: IBUPROFEN 400 MG TABLET (FP) PO PRN (17:11)
[2022-04-24 17:31] VITALS: BP 118/55; PULSE 77; RESP 20; TEMP 98.2; BMI 57.9
[2022-04-24] MEDS ORDERED: LIDOCAINE 5% TOPICAL PATCH ONE (17:39)
[2022-04-24] MEDS ORDERED: ACETAMINOPHEN 325 MG TABLET (FP) PO ONE (17:40)
[2022-04-24] MEDS ORDERED: LIDOCAINE PATCH REMOVAL MC SCH (22:00)
== END 2022-04-24 18:03 | disposition home or self-care (01) ==
LOC: FER 17:01
DX: M54.41 Lumbago with sciatica, right side (principal)
CPT/HCPCS: 99283-25

== ENCOUNTER 2022-05-27 08:32 | Day surgery (SDC) | payer OTHER ==
[2022-05-26 13:21] VITALS: BMI 54.5
[2022-05-27 10:44] VITALS: BP 116/71; PULSE 81; RESP 19; TEMP 98
== END 2022-05-27 10:35 | disposition home or self-care (01) ==
LOC: FASU-ENDO 08:32
PROVIDERS: ATTEND Internal Medicine Gastroenterology
PROC: 0DJD8ZZ Inspection of Lower Intestinal Tract, Via Natural or Artificial Opening Endoscopic (ICD-10-PCS; principal; 2022-05-27 09:50)
DX: Z12.11 Encounter for screening for malignant neoplasm of colon (principal); K57.30 Diverticulosis of large intestine without perforation or abscess without bleeding